=== PATIENT | female | born 2000 | race Caucasian/White ===

== ENCOUNTER → 2021-08-13 13:54 | Outpatient (BNVA) | payer MEDICAID, SELFPAY | PROVIDERS: PCP Family Medicine; Visit Provider Advanced Practice Midwife | DX: O09.30 Supervision of pregnancy with insufficient antenatal care, unspecified trimester (principal) | CPT/HCPCS: 99202 ==

== ENCOUNTER 2021-09-01 09:45 | Outpatient (REF) | payer MEDICAID, SELFPAY ==
[2021-09-01 12:36] LABS: Hemoglobin 11.3 g/dl (12.0-16.0); Mean Corpuscular HGB Conc 33.2 g/dl (31.0-35.0); Mean Corpuscular Hemoglobin 30.5 pg (27.0-33.0); Mean Corpuscular Volume 91.6 fL (80.0-98.0); Mean Platelet Volume 10.3 fL (9.4-12.3); Platelet Count 293 X10*3/uL (160-400); Red Blood Count 3.71 X10*6/uL (4.20-5.50); Red Cell Distribution Width 13.2 % (11.0-16.0); White Blood Count 9.1 X10*3/uL (4.8-10.8)
[2021-09-01 13:36] LABS: Syphilis Screen Nonreactive (Nonreactive)
[2021-09-01 14:06] LABS: Amphetamine Screen Urine Not Detected (Not Detect); Barbiturates, Urine Not Detected (Not Detect); Benzodiazepines Screen Urine Not Detected (Not Detect); Cannabinoid Screen Urine POSITIVE (Not Detect); Cocaine Screen Urine Not Detected (Not Detect); Fentanyl, urine Not Detected (Not Detect); Opiate Screen Urine Not Detected (Not Detect); Phencyclidine Screen Urine Not Detected (Not Detect)
[2021-09-02 04:32] LABS: ~HepC Num1 0.08 S/CO (0.00-0.79); ~Hepatitis C Antibody Nonreactive (Nonreactive)
[2021-09-02 04:38] LABS: HBsAGNum1 0.22 S/CO (0.00-0.99); HIV AB/AG Nonreactive (Nonreactive); HIV Num 1 0.06 S/CO (0.00-0.99); Hepatitis B Surface Antigen Negative (Negative)
[2021-09-03 01:16] LABS: Rubella IgG Antibody 1.01 Index
== END 2021-09-01 09:46 | disposition home or self-care (01) ==
LOC: HO.LAB 09:45
PROVIDERS: PCP Family Medicine; Visit Provider Advanced Practice Midwife
DX: O99.344 Other mental disorders complicating childbirth (principal); F41.9 Anxiety disorder, unspecified; Z11.3 Encounter for screening for infections with a predominantly sexual mode of transmission
CPT/HCPCS: 80307; 85027; 86762; 86780; 86787; 86803; 86850; 86900; 86901; 87086; 87340; 87389; 99212

== ENCOUNTER 2021-09-10 10:59 | Outpatient (REF) | payer OTHER, SELFPAY ==
--- NOTE | ~2021-09-10 | US_ITS ---
EXAMINATION: US OBSTETRICAL CLINICAL INFORMATION: 21-year-old at the 21.4 weeks of gestation Insufficient care Screening for anomaly COMPARISON: None TECHNIQUE: Real-time transabdominal ultrasound was performed using C1-5 megahertz transducer. FINDINGS: A single, active, fetus is seen in transverse presentation. The placenta is left lateral without previa, and the amniotic fluid volume is wnl. MEASUREMENTS: 1. Biparietal Diameter: 4.8 cm; 20.3 wks 2. Occipital Frontal Diameter: 6.3 cm 3. Head Circumference: 18.1 cm; 20.4 wks 4. Abdominal Circumference: 15.6 cm; 20.6 wks 5. Femur Length: 3.0 cm; 19.3 wks 6. Humerus Length: 3.1 cm; 20.1 wks 7. Tibia Length: 2.6 cm; 19.1 wks 8. Ulna Length: 2.7 cm; 19.6 wks 9. Lateral ventricle: 0.7 cm 10. Cerebellum: 1.97 cm; 20.1 wks 11. Cisterna Magna: 0.41 cm 12. Nuchal Fold: 3.7 mm 13. Heart Rate: 146 beats per minute Rt ovary: normal Lt ovary: normal Cervical length 3.6 cm on T/A. GESTATIONAL AGE: 1. Established GA: 21.4 wks 2. GA from [facility]: 20.3 wks ESTIMATED DATE OF DELIVERY: 1. Established BULL: 01/17/2022 2. BULL from [facility]: 01/25/2022 ANATOMY: The visualized anatomy includes but not limited to: 1. Cranium: Normal 2. Intracranial anatomy: cavum septum pellucidi, lateral ventricles, choroid plexus, cerebellum, posterior fossa, third and fourth ventricles. 3. face: orbits, lip/palate, profile, nasal bone 4. Heart: four-chamber view of the heart, ventricular septum, foramen ovale, pulmonary vein, left and right outflow tracts, three-vessel view, 3 vessel trachea view, aortic and ductal arches, situs.. 5. Diaphragm: Normal 6. Abdominal wall: Normal 7. Cord Insertion: Normal 8. Spine: Cervical, thoracic, lumbar, sacral. 9. Stomach: Normal size and shape 10. Right Kidney: Normal 11. Left Kidney: Normal 12. 3 vessel cord: Normal 13. Upper extremity: Open hands, fifth digit. 14. Lower extremity: Tibia, fibula, bilateral feet. 15. Bladder: Normal 16. Genitalia: Male, patient aware US/US OB /maternal detail IMPRESSION: 1. Single, living, intrauterine with appropriate biometry. 2. Normal survey DISCUSSION: Her BULL of 01/17/2022 is based on the first day of her LMP which she performed these was on 04/12/2021. This is her first ultrasound in this . Given that the discrepancy is only 8 days, suggest continuing to follow her BULL is 01/17/2022. I reviewed today's ultrasound findings. We discussed the limitations of ultrasound in diagnosing aneuploidy and other congenital abnormalities. I reviewed the differences between screening test and diagnostic test. Amniocentesis was discussed and declined. She was informed that the baseline incidence of congenital abnormalities is approximately 3-5%. Not all these conditions are diagnosable in utero. RECOMMENDATIONS: 1. Suggest an interval growth in approximately 4 weeks (scheduled). Thank you for allowing me to participate in her care. Total time 30 minutes. The time spent was devoted to counseling the patient about the disease and diagnosis, coordinating care including reviewing her records, pertinent lab data and studies, as well as discussing diagnostic evaluation and workup, plan therapeutic interventions and future disposition of care. This includes any additional research needed to obtain further information in formulating the plan of care of this patient. This note was generated with a voice recognition program. Please excuse any errors which may have been overlooked during my review of this note. Sometimes these errors may affect the content or meaning of a given sentence.
== END 2021-09-10 11:00 | disposition home or self-care (01) ==
LOC: HO.US 10:59
PROVIDERS: Visit Provider Advanced Practice Midwife
DX: O09.32 Supervision of pregnancy with insufficient antenatal care, second trimester (principal); O35.9XX0 Maternal care for (suspected) fetal abnormality and damage, unspecified, not applicable or unspecified; Z3A.21 21 weeks gestation of pregnancy
CPT/HCPCS: 76811

== ENCOUNTER 2021-10-08 10:54 | Outpatient (REF) | payer OTHER, SELFPAY ==
--- NOTE | ~2021-10-08 | US_ITS ---
EXAMINATION: OBSTETRICAL ULTRASOUND, Follow up HISTORY: 21-year-old at 25.4 weeks of gestation Size date discrepancy COMPARISON: 09/10/2021 TECHNIQUE: Real time transabdominal imaging with color and M-mode Doppler. PRESENTATION: Breech PLACENTA LOCATION: Anterior without previa AMNIOTIC FLUID: SOLANGE 24 cm MEASUREMENTS: 1. Biparietal Diameter: 6.0 cm; 24.4 wks 2. Head Circumference: 22.4 cm; 24.4 wks 3. Abdominal Circumference: 19.8 cm; 24.4 wks 4. Femur Length: 4.2 cm; 23.4 wks 5. Heart Rate: 136 beats per minute WEIGHT: EFW: 663 grams (1 lbs 7 oz) -- 4 %. GESTATIONAL AGE: 1. Established GA: 25.4 wks 2. GA from [facility]: 24.3 wks ESTIMATED DATE OF DELIVERY: 1. Established BULL: 01/17/2022 2. BULL from [facility]: 01/25/2022 US/US OB follow up IMPRESSION: 1. A single active fetus 2. Size equals dates, EFW corresponds to 4th percentile 3. SOLANGE: 24 cm Although the EFW corresponds to 4th percentile, compared to her prior examination, there has been an appropriate interval growth. There was 8 day discrepancy between her LMP assigned BULL (01/17/2022) and [facility] estimated BULL of 01/25/2022 on her 09/10/21 exam. Since she was 21 weeks at that time, the decision was made to keep 01/17/2022 as the best BULL. I reviewed the limitations of ultrasound and estimating weights and the clinical significance of the EFW percentile at this early gestational age. I reassured her that the interval growth is a more reliable indicator of placental function than any single EFW measurement. She is scheduled for a repeat growth in 4 weeks. Thank you very much for this referral. Total time 30 minutes. The time spent was devoted to counseling the patient about the disease and diagnosis, coordinating care including reviewing her records, pertinent lab data and studies, as well as discussing diagnostic evaluation and workup, plan therapeutic interventions and future disposition of care. This includes any additional research needed to obtain further information in formulating the plan of care of this patient. This note was generated with a voice recognition program. Please excuse any errors which may have been overlooked during my review of this note. Sometimes these errors may affect the content or meaning of a given sentence.
== END 2021-10-08 10:55 | disposition home or self-care (01) ==
LOC: HO.US 10:54
PROVIDERS: Visit Provider Advanced Practice Midwife
DX: Z34.92 Encounter for supervision of normal pregnancy, unspecified, second trimester (principal); Z3A.25 25 weeks gestation of pregnancy
CPT/HCPCS: 76816

== ENCOUNTER 2021-10-28 14:55 | Outpatient (REF) | payer OTHER, SELFPAY ==
[2021-10-29 14:16] LABS: CT PCR NOT DETECTED (Not Detect.); NG PCR NOT DETECTED (Not Detect.)
[2021-11-06 06:31] LABS: HPV 16 RNA NOT DETECTED (NOT DETECTED); HPV mRNA E6/E7 rflx Detected (Not Detected)
== END 2021-10-28 14:56 | disposition home or self-care (01) ==
LOC: HO.LAB 14:55
PROVIDERS: PCP Family Medicine; Visit Provider Advanced Practice Midwife
DX: Z34.92 Encounter for supervision of normal pregnancy, unspecified, second trimester (principal); Z3A.27 27 weeks gestation of pregnancy
CPT/HCPCS: 81003; 87491; 87591; 87624; 87625; 88142; 99212

== ENCOUNTER 2021-10-29 10:39 | Outpatient (REF) | payer OTHER, SELFPAY ==
--- NOTE | ~2021-10-29 | US_ITS ---
EXAMINATION: OBSTETRICAL ULTRASOUND, Follow up HISTORY: 21-year-old at the 28.4 weeks of gestation Size date discrepancy COMPARISON: 10/08/2021 TECHNIQUE: Real time transabdominal imaging with color and M-mode Doppler. PRESENTATION: Transverse PLACENTA LOCATION: Anterior without previa AMNIOTIC FLUID: Normal, and TWISTER FRAME TENDER 5.6 cm MEASUREMENTS: 1. Biparietal Diameter: 6.9 cm; 28.0 wks 2. Head Circumference: 25.8 cm; 28.1 wks 3. Abdominal Circumference: 21.9 cm; 26.3 wks 4. Femur Length: 4.7 cm; 25.5 wks 5. Heart Rate: 144 beats per minute WEIGHT: EFW: 932 grams (2 lbs 1 oz) -- 2 %. BIOPHYSICAL PROFILE: Motion: 2 Tone: 2 Breathin Amniotic Fluid: 2 Total score: 8/8 UA Doppler showed SD ratio of 2.6 which is within normal limits. GESTATIONAL AGE: 1. Established GA: 28.4 wks 2. GA from [facility]: 27.1 wks ESTIMATED DATE OF DELIVERY: 1. Established BULL: 01/17/2022 2. BULL from [facility]: 01/27/2022 US/US OB follow up IMPRESSION: 1. A single active fetus 2. Size less than dates, EFW 2nd percentile. Compared to the prior exam there has been less than expected interval growth. 3. Reassuring testing including the Doppler. I informed the patient that today's finding is consistent with FGR. Approximately 70% of fetuses whose EFW fall below 10th percentile for constitutionally small but healthy fetuses growing to their full genetic potential. The other 30% may be experiencing placental insufficiency. Often it is difficult to distinguish the 2 in utero. I reviewed the approximate management of the FGR including betamethasone administration, close monitoring and possible delivery. I recommended a consultation/transfer to the [facility]. Thank you very much for this referral. Total time 40 minutes. The time spent was devoted to counseling the patient about the disease and diagnosis, coordinating care including reviewing her records, pertinent lab data and studies, as well as discussing diagnostic evaluation and workup, plan therapeutic interventions and future disposition of care. This includes any additional research needed to obtain further information in formulating the plan of care of this patient. This note was generated with a voice recognition program. Please excuse any errors which may have been overlooked during my review of this note. Sometimes these errors may affect the content or meaning of a given sentence.
--- NOTE | ~2021-10-29 | US_ITS ---
EXAMINATION: OBSTETRICAL ULTRASOUND, Follow up HISTORY: 21-year-old at the 28.4 weeks of gestation Size date discrepancy COMPARISON: 10/08/2021 TECHNIQUE: Real time transabdominal imaging with color and M-mode Doppler. PRESENTATION: Transverse PLACENTA LOCATION: Anterior without previa AMNIOTIC FLUID: Normal, and TANK WORKER 5.6 cm MEASUREMENTS: 1. Biparietal Diameter: 6.9 cm; 28.0 wks 2. Head Circumference: 25.8 cm; 28.1 wks 3. Abdominal Circumference: 21.9 cm; 26.3 wks 4. Femur Length: 4.7 cm; 25.5 wks 5. Heart Rate: 144 beats per minute WEIGHT: EFW: 932 grams (2 lbs 1 oz) -- 2 %. BIOPHYSICAL PROFILE: Motion: 2 Tone: 2 Breathin Amniotic Fluid: 2 Total score: 8/8 UA Doppler showed SD ratio of 2.6 which is within normal limits. GESTATIONAL AGE: 1. Established GA: 28.4 wks 2. GA from [facility]: 27.1 wks ESTIMATED DATE OF DELIVERY: 1. Established BULL: 01/17/2022 2. BULL from [facility]: 01/27/2022 US/US OB velocimetry umbilical ar IMPRESSION: 1. A single active fetus 2. Size less than dates, EFW 2nd percentile. Compared to the prior exam there has been less than expected interval growth. 3. Reassuring testing including the Doppler. I informed the patient that today's finding is consistent with FGR. Approximately 70% of fetuses whose EFW fall below 10th percentile for constitutionally small but healthy fetuses growing to their full genetic potential. The other 30% may be experiencing placental insufficiency. Often it is difficult to distinguish the 2 in utero. I reviewed the approximate management of the FGR including betamethasone administration, close monitoring and possible delivery. I recommended a consultation/transfer to the [facility]. Thank you very much for this referral. Total time 40 minutes. The time spent was devoted to counseling the patient about the disease and diagnosis, coordinating care including reviewing her records, pertinent lab data and studies, as well as discussing diagnostic evaluation and workup, plan therapeutic interventions and future disposition of care. This includes any additional research needed to obtain further information in formulating the plan of care of this patient. This note was generated with a voice recognition program. Please excuse any errors which may have been overlooked during my review of this note. Sometimes these errors may affect the content or meaning of a given sentence.
== END 2021-10-29 10:40 | disposition home or self-care (01) ==
LOC: HO.US 10:39
PROVIDERS: Visit Provider Advanced Practice Midwife
DX: Z34.93 Encounter for supervision of normal pregnancy, unspecified, third trimester (principal); Z3A.28 28 weeks gestation of pregnancy
CPT/HCPCS: 76816; 76820

== ENCOUNTER 2021-11-01 12:52 | Outpatient (REF) | payer OTHER, SELFPAY ==
[2021-11-01 15:01] LABS: Glucose 1 Hour PP 50gm Dose 92 mg/dL (60-140)
== END 2021-11-01 12:53 | disposition home or self-care (01) ==
LOC: HO.LAB 12:52
PROVIDERS: Visit Provider Advanced Practice Midwife
DX: O99.810 Abnormal glucose complicating pregnancy (principal); Z3A.00 Weeks of gestation of pregnancy not specified
CPT/HCPCS: 36415